=== PATIENT | female | born 1965 | race Caucasian/White ===

== ENCOUNTER 2021-10-26 11:04 | Emergency (ER) | payer MEDICARE, BC, MEDICAID, SELFPAY ==
[2021-10-26 11:17] VITALS: BP 123/63; PULSE 87; RESP 16; TEMP 36.7; O2SAT 99
--- NOTE | 2021-10-26 12:37 | ED.GENADULT ---
HPI - General Adult General Chief complaint: Head Injury Stated complaint: head injury Source: patient and family Mode of arrival: ambulatory Limitations: no limitations History of Present Illness HPI narrative: Patient is a 56-year-old female who presents to [facility] via P[facility] accompanied by her parents for evaluation of facial trauma that occurred last night. Patient reports falling onto the shower rail after having a seizure last night. She reports left eye swelling and bruising. Last seizure was October 10. Last seizure was September 14, 2021. Fall was unwitnessed. History of epilepsy Related Data Home Medications Medication Instructions Recorded Confirmed clorazepate dipotassium 3.75 mg PO DAILY 10/26/21 10/26/21 lamotrigine 200 mg PO DAILY 10/26/21 10/26/21 levetiracetam [Keppra] 1,000 mg PO DAILY 10/26/21 10/26/21 levetiracetam [Keppra] 500 mg PO HS 10/26/21 10/26/21 levothyroxine 100 mcg PO DAILY 10/26/21 10/26/21 midodrine 5 mg PO DAILY 10/26/21 10/26/21 pravastatin 40 mg PO DAILY 10/26/21 10/26/21 sertraline 100 mg PO DAILY 10/26/21 10/26/21 topiramate [Topamax] 200 mg PO PRN PRN 10/26/21 10/26/21 Allergies Allergy/AdvReac Type Severity Reaction Status Date / Time lithium Allergy Intermediate Hives Verified 10/26/21 11:10 phenobarbital Allergy Intermediate Hives Verified 10/26/21 11:10 phenytoin Allergy Intermediate Hives Verified 10/26/21 11:10 Review of Systems Review of Systems: Pertinent negatives: fever, chills, sweats, change in appetite, poor p.o. intake, headache, dizziness, lymphadenopathy, vision changes, swelling, erythema, weakness, syncope, vertigo, memory loss, difficulty with coordination/gait/equilibrium, paresthesias, abdominal pain, nausea, vomiting, diarrhea, constipation, shortness of breath, cough, chest pain, and heart palpitations/murmurs. [facility] Past Medical History Medical History (Updated 11/04/21 @ 09:22 by Patrica Zambrano, PUBLISHER ASSISTANT, BC) Borderline hyperlipidemia Depression Epilepsy Orthostatic hypotension Comments I have reviewed and agree with the patient's past medical, surgical, social, and family hx as documented by the RN. There is no relevant family history pertinent to the presenting complaint. Exam Narrative: GENERAL: Well-appearing, well-nourished, and in no acute distress. HEAD: Normocephalic, atraumatic. No sinus tenderness or facial swelling appreciated. No evidence of ear bleeding or drainage from ears. No evidence of foreign bodies. No signs of basilar skull fracture: no hemotympanum, abreu's sign, or raccoon's eyes. Severe ecchymosis and swelling noted to left eye. EYES: PERRLA and EOMI. No evidence of erythema, swelling, or drainage. ENT: Bilateral external ears and ear canals normal. Bilateral TMs are normal. No TM perforation. Nares clear, no septal hematoma or epistaxis. Bilateral turbinates without erythema/ swelling. Mucous membranes moist and pink. Uvula is midline without erythema and swelling. No evidence of petechial rash, cobblestoning, lesions, ulcers, erythema, swelling, exudates, peritonsillar abscess, tenting, or drooling. Breath odor and voice normal. NECK: Supple. No injury or pain appreciated. No lymphadenopathy or nuchal rigidity appreciated. CHEST: Bilateral lung neumann are clear to auscultation. No respiratory distress. No evidence of cough or pleuritic cp upon examination. No evidence of deformity, flail chest, hematomas, contusions, lacerations. HEART: Regular rate and rhythm. No murmur, gallop, or rub heard. ABDOMEN: Soft, nontender, nondistended, normal active bowel sounds in all quadrants. No guarding. No rebound tenderness. No pulsatile or palpable abdominal mass(es). No CVAT. No evidence of seat belt sign. BACK: Full ROM. No evidence of deformity, spasm, mass, spinal tenderness, or swelling. Bilateral SLR tests negative. EXTREMITIES: Normal range of motion. No edema. SKIN: Warm, dry, no rash. No lauren
== END 2021-10-26 11:40 | disposition short-term general hospital (02) ==
PROVIDERS: Emergency Provider Nurse Practitioner Family
DX: S09.90XA Unspecified injury of head, initial encounter (principal); S00.12XA Contusion of left eyelid and periocular area, initial encounter; W19.XXXA Unspecified fall, initial encounter; G40.909 Epilepsy, unspecified, not intractable, without status epilepticus; F32.A Depression, unspecified; I95.1 Orthostatic hypotension
CPT/HCPCS: 99213; G0463

== ENCOUNTER 2021-10-26 12:15 | Emergency (ER) | payer MEDICARE, MEDICAID, SELFPAY ==
[2021-10-26 12:41] VITALS: BP 151/110; PULSE 81; RESP 17; TEMP 36.7; O2SAT 100
[2021-10-26 14:41] VITALS: BP 110/63; PULSE 80; O2SAT 99
--- NOTE | 2021-10-26 15:48 | PC.NURSE ---
pt not here when called
== END 2021-10-27 03:53 | disposition left against medical advice (07) ==
LOC: ANHED 15:57
DX: S06.9X9A Unspecified intracranial injury with loss of consciousness of unspecified duration, initial encounter (principal)
CPT/HCPCS: 99199